=== PATIENT | female | born 1990 | race American Indian/Alaskan Native ===

== ENCOUNTER → 2016-11-30 | Outpatient (CLI) | payer BC, OTHER ==
--- NOTE | 2016-11-30 15:37 | US ---
EXAMINATION: Right breast ultrasound HISTORY: Increasing lump COMPARISON: None TECHNIQUE: Grayscale and color Doppler images obtained of the right breast. FINDINGS: At the 3:00 position of the right breast there is a 1.9 x 2.1 cm hypoechoic fairly homogen eous and mildly vascular mass. The margins appear rather well circumscribed however there are karoline ral undulations. There is no significant posterior acoustic shadowing. IMPRESSION: BI-RADS 4: Suspicious finding. There is a hypoechoic mass within the region of concern w hich most likely represents a fibroadenoma, however due to the enlarging size and several undulation s ultrasound-guided biopsy may be beneficial to confirm diagnosis.
== END ==
LOC: MW.US 10:56
PROVIDERS: ATTEND Physician Assistant
DX: N63 Unspecified lump in breast (principal)
CPT/HCPCS: 76641-RT; 76641-RT-26

== ENCOUNTER → 2016-12-15 | Outpatient (CLI) | payer BC, OTHER ==
--- NOTE | 2016-12-15 13:59 | US ---
EXAMINATION: Right breast ultrasound HISTORY: Lump COMPARISON: 11/16/2016 TECHNIQUE: The procedure, risks, and benefits were discussed with the patient. Informed consent was obtained. The overlying area was sterilely prepped and draped. 1% lidocaine was administered for lo rimma anesthesia. Using ultrasound guidance a total of 3 16-gauge core biopsies were obtained. A clip was placed following the procedure. There were no immediate complications. Patient tolerated the pro cedure well. IMPRESSION: Successful ultrasound-guided breast biopsy of a right 3:00 breast mass.
== END ==
LOC: MW.US 10:02
PROVIDERS: ATTEND Physician Assistant
DX: N63 Unspecified lump in breast (principal)
CPT/HCPCS: 19083-RT; 88305

== ENCOUNTER 2017-02-14 08:17 | Day surgery (SDC) | payer BC, OTHER ==
[~2017-02-14 08:17] MED LIST: Bupivacaine 0.25%/EPINEPHrine 1:200,000 10 ML SDV ONE
--- NOTE | 2017-02-14 08:46 | PCM.PREANE ---
Preanesthetic Assessment - Anesthesia/Transfusion/Family Hx Anesthesia History: Prior Anesthesia Without Reaction Family History of Anesthesia Reaction: No Transfusion History: No Prior Transfusion(s) Intubation History: Unknown - Review of Systems General: No Symptoms Pulmonary: No Symptoms Cardiovascular: No Symptoms 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: No symptoms Neurological: No Symptoms Other: Reports: None - Physical Assessment Height: 1.57 m Weight: 67.132 kg ASA Class: 2 Mental Status: Alert & Oriented x3 Airway Class: Mallampati = 2 Dentition: Reports: Normal Dentition Thyro-Mental Finger Breadths: 3 Mouth Opening Finger Breadths: 3 ROM/Head Extension: Full Lungs: Clear to auscultation, Normal respiratory effort Cardiovascular: Regular Rate, Regular Rhythm - Lab Values: Laboratory Last Values Urine HCG, Qual NEGATIVE (NEGATIVE) 02/14/17 08:20 - Allergies Allergies/Adverse Reactions: Allergies Allergy/AdvReac Type Severity Reaction Status Date / Time No Known Allergies Allergy Verified 09/04/16 14:05 - Blood Blood Available: No - Anesthesia Plan Pre-Op Medication Ordered: None - Acknowledgements Anesthesia Type Planned: MAC Pt an Appropriate Candidate for the Planned Anesthesia: Yes Alternatives and Risks of Anesthesia Discussed w Pt/Guardian: Yes Pt/Guardian Understands and Agrees with Anesthesia Plan: Yes PreAnesthesia Questionnaire - Past Health History Medical/Surgical History: Denies Medical/Surgical History HEENT History: Reports: None 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 History: Reports: 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: 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 History: Reports: Fracture Endocrine/Metabolic History: Reports: None - Infectious Disease History Infectious Disease History: Reports: Chicken Pox - Past Surgical History Head Surgeries/Procedures: Reports: None HEENT Surgical History: Reports: Oral Surgery Other HEENT Surgeries/Procedures: wisdom teeth extraction GI Surgical History: Reports: Cholecystectomy 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 Surgical History: Other 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 Surgeries/Procedures:: ORIF left arm fx with plate and screws - SUBSTANCE USE Smoking Status *Q: Current Every Day Smoker (1/2 ppd) Tobacco Use Within Last Twelve Months: Cigarettes Second Hand Smoke Exposure: No Days Per Week of Alcohol Use: 0 Recreational Drug Use History: No - HOME MEDS Home Medications: Home Meds Phentermine HCl 1 tab PO DAILY 02/08/17 [History] - CURRENT (IN HOUSE) MEDS Current Meds: Current Medications Hydrocodone Bitart/Acetaminophen (Orange 325-5 Mg) 1 tab PO Q4H PRN PRN Reason: Pain Bupivacaine HCl/Epinephrine Bitart (Marcaine 0.25%/Epinephrine 1:200,000) 20 ml INJECT ONETIME ONE Stop: 02/14/17 09:01 Lactated Ringer's (Ringers, Lactated) 1,000 mls @ 125 mls/hr IV ASDIRECTED KACI Cefazolin Sodium/Dextrose 2 gm (/ Premix) 50 mls @ 100 mls/hr IV ONETIME ONE Stop: 02/14/17 09:29 Discontinued Medications Bupivacaine HCl/Epinephrine Bitart (Marcaine 0.25%/Epinephrine 1:200,000) Confirm Administered Dose 20 ml .ROUTE .STK-MED ONE Stop: 02/14/17 07:32
[2017-02-14] MEDS ORDERED: ceFAZolin 2 GM in Premix Bag 1 BAG IV ONE (09:00)
[2017-02-14] MEDS ORDERED: Acetaminophen/HYDROcodone 325-5 MG Tab PO PRN (09:00)
[2017-02-14] MEDS ORDERED: Bupivacaine 0.25%/EPINEPHrine 1:200,000 10 ML SDV INJECT ONE (09:00)
[2017-02-14] MEDS ORDERED: Lactated Ringers 1,000 ML IV SCH (09:00)
[2017-02-14] MEDS ORDERED: Midazolam 1 MG/ML 2 ML SDV ONE (09:28)
[2017-02-14] MEDS ORDERED: Lidocaine 2% 5 ML SDV ONE (09:28)
[2017-02-14] MEDS ORDERED: fentaNYL 250 MCG/5 ML SDV ONE (09:28)
[2017-02-14] MEDS ORDERED: Propofol 200 MG/20 ML SDV ONE ×2 (09:28→09:29)
[2017-02-14] MEDS ORDERED: fentaNYL 100 MCG/2 ML SDV IVPUSH PRN (10:35)
[2017-02-14 12:38] VITALS: BP 115/77
--- NOTE | 2017-02-14 15:30 | PCM.OPNOTE ---
- General Post-Op/Procedure Note Date of Surgery/Procedure: 02/14/17 Operative Procedure(s): excision fo right breast fibroadenoma Pre Op Diagnosis: right breast fibroadenoma Post-Op Diagnosis: Same Anesthesia Technique: General LMA, Local Primary Surgeon: Queta Marinelli Printing Supervisor: Kizzy Cheema Complications: None Condition: Good Free Text/Narrative:: Intake & Output 02/13/17 02/14/17 02/14/17 23:59 07:59 15:59 Intake Total 1000 Balance 1000
--- NOTE | 2017-02-15 16:19 | OR ---
SURGEON: YARI GOMEZ MD DATE OF PROCEDURE: 02/14/2017 PREOPERATIVE DIAGNOSIS: Right breast fibroadenoma. POSTOPERATIVE DIAGNOSIS: Right breast fibroadenoma. PROCEDURE: Excision of right breast fibroadenoma 3 cm. PRACTICE PHYSICIAN: MARTY Benavidez. ANESTHESIA: General LMA with local. INDICATIONS: Ms. Mittal is a 26-year-old female with a right breast lesion. She has had ultrasounds and this is very indicative of a fibroadenoma. However, it continues to cause her pain and grow in size. Risks and benefits of excision were discussed and she was in agreement to proceed. Risks were including, but not limited to, bleeding, infection, damage to underlying or overlying structures, possible need for future interventions and possible scarring. PROCEDURE IN DETAIL: After informed consent was obtained and placed on the chart, the patient was brought to the operating theater and laid in supine position. After adequate general anesthetic was obtained, the area was prepped and draped and a time-out was completed to confirm side and site. Local anesthesia was then infiltrated into the area and dissection was carried around the periareolar medial area of the right breast and dissection was carried down through the skin and subcutaneous tissues until the breast tissue was reached. The fibroadenoma was easily localized and circumferentially dissected and removed and sent for pathology. Once adequately removed, the area was irrigated and the skin was closed using a 4-0 nylon stitch in a running subcuticular fashion. The patient tolerated this well. All counts and needles were correct at the end of the case. FOLLOWUP INSTRUCTIONS: The patient will see us in clinic in 10 to 14 days or sooner if any problems, questions, or concerns. She was given a prescription for pain control. SHAYNE / CAYLA /[id number]
== END 2017-02-14 12:00 | disposition home or self-care (01) ==
LOC: MW.SDS 08:17
PROVIDERS: ATTEND Plastic Surgery
PROC: 0HBT0ZZ Excision of Right Breast, Open Approach (ICD-10-PCS; principal; 2017-02-14)
DX: D24.1 Benign neoplasm of right breast (principal); F17.210 Nicotine dependence, cigarettes, uncomplicated; Z79.899 Other long term (current) drug therapy; Z98.890 Other specified postprocedural states; Z90.49 Acquired absence of other specified parts of digestive tract
CPT/HCPCS: 19120; 81025; J0690; J2250; J3010; J7120; 00400; 88307; J2704

== ENCOUNTER 2018-08-11 11:01 | Day surgery (SDC) | payer BC, OTHER ==
[2018-08-11] MEDS ORDERED: Ketorolac 30 MG/ML SDV IVPUSH ONE (11:15)
[2018-08-11] MEDS ORDERED: Sodium Chloride 0.9% 1,000 ML IV ONE (11:15)
--- NOTE | 2018-08-11 11:19 | EDM.PDOC ---
ED HPI GENERAL MEDICAL PROBLEM - General Chief Complaint: Abdominal Pain Stated Complaint: PAIN IN LOWER RT SIDE Time Seen by Provider: 08/11/18 11:09 Source of Information: Reports: Patient History Limitations: Reports: No Limitations - History of Present Illness INITIAL COMMENTS - FREE TEXT/NARRATIVE: HISTORY AND PHYSICAL: History of present illness: Patient is a 27-year-old female who presents to the emergency room with complaints of right lower quadrant pain. She states over the past 3 weeks she has had this right lower quadrant pain that occurs only at night. She reports that eventually she would fall asleep and wake up and the pain would be gone. She states last night she had the right lower quadrant pain as normal but when she woke up today the pain continued. Pain is worse with movement, pressure or palpation of the right lower quadrant. She denies any fever, chills, chest pain , shortness of breath or cough. Denies any nausea, vomiting, diarrhea, constipation or dysuria. She has been able to eat and drink appropriately. Last menstrual period 07/30/18 Review of systems: As per history of present illness and below otherwise all systems reviewed and negative. Past medical history: As per history of present illness and as reviewed below otherwise noncontributory. Surgical history: As per history of present illness and as reviewed below otherwise noncontributory. Social history: See social history for further information Family history: As per history of present illness and as reviewed below otherwise noncontributory. Physical exam: General: Well-developed and well-nourished 89 she'll female. Alert and oriented. Nontoxic appearing and in no acute distress. HEENT: Atraumatic, normocephalic, pupils equal and reactive bilaterally, negative for conjunctival pallor or scleral icterus, mucous membranes moist, throat clear, neck supple, nontender, trachea midline. No drooling or trismus noted. No meningeal signs Lungs: Clear to auscultation, breath sounds equal bilaterally, chest nontender. Heart: S1S2, regular rate and rhythm without overt murmur Abdomen: Soft, nondistended, right lower quadrant tenderness- mild rebound tenderness. Negative for masses or hepatosplenomegaly. Negative for costovertebral tenderness. Pelvis: Stable nontender. Genitourinary: Deferred. Rectal: Deferred. Skin: Intact, warm, dry. No lesions or rashes noted. Extremities: Atraumatic, negative for cords or calf pain. Neurovascular unremarkable. Neuro: Awake, alert, oriented. Cranial nerves II through XII unremarkable. Cerebellum unremarkable. Motor and sensory unremarkable throughout. Exam nonfocal. Notes: Patient did have a right breast fibroadenoma removed on 07/24/18. Previous history of cholecystectomy. Consulting radiology did call with the results on the CT scan. Appendix is enlarged at 7 mm with mild fat stranding which represents an early appendicitis. Dr Perkins was called and consulted on this patient. He will come in to see the patient. Patient was made aware of the CT findings and instructed to be nothing by mouth. She declines the need for any additional pain medication at this time. Vital signs are stable. 1310: Dr Perkins here to see patient. Diagnostics: CBC, CMP, UA, urine , CT abdomen and pelvis Therapeutics: IV fluid, Toradol Prescription: N/A Impression: Early Appendicitis Plan: Under the care of Dr Perkins to OR Definitive disposition and diagnosis as appropriate pending reevaluation and review of above. RLQ Pain Score (Numeric/FACES): 6 - Related Data Allergies Allergy/AdvReac Type Severity Reaction Status Date / Time No Known Allergies Allergy Verified 08/11/18 11:18 Home Meds: Home Meds . 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: 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 History: Reports: Fracture Other Neuro History: migraines in the past, Endocrine/Metabolic History: Reports: None Oncologic (Cancer) History: Reports: None - Infectious Disease History Infectious Disease History: Reports: Chicken Pox - Past Surgical History Head Surgeries/Procedures: Reports: None HEENT Surgical History: Reports: Oral Surgery Other HEENT Surgeries/Procedures: wisdom teeth extraction GI Surgical History: Reports: Cholecystectomy Female Surgical History: Reports: Breast Biopsy Other 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 Surgeries/Procedures:: ORIF left arm fx with plate and screws Oncologic Surgical History: Reports: Biopsy of Breast Social & Family History - Family History Family Medical History: Noncontributory - Caffeine Use Caffeine Use: Reports: Coffee, Energy Drinks, Soda, Tea Caffeine Use Comment: 1-2 cups/day ED ROS GENERAL - Review of Systems Review Of Systems: ROS reveals no pertinent complaints other than HPI. ED EXAM, GI/ABD - Physical Exam Exam: See Below (See dictation) Course - Vital Signs Last Recorded V/S: Last Vital Signs Temp 97.1 F 08/11/18 11:17 Pulse 78 08/11/18 12:47 Resp 18 08/11/18 12:47 BP 107/69 08/11/18 12:47 Pulse Ox 98 08/11/18 12:47 - Orders/Labs/Meds Orders: Active Orders 24 hr Category Date Time Status Abdomen Pelvis w Cont [CT] Stat Exams 08/11/18 11:15 Ordered CULTURE URINE [RM] Stat Lab 08/11/18 11:52 Ordered Lactated Ringers [Ringers, Lactated] 1,000 ml Med 08/11/18 13:30 Active IV ASDIRECTED cefOXitin [Mefoxin] 2 gm Med 08/11/18 13:21 Active Sodium Chloride 0.9% [Normal Saline] 100 ml IV ONETIME Medication Orders Lactated Ringer's (Ringers, Lactated) 1,000 mls @ 125 mls/hr IV ASDIRECTED KACI Cefoxitin Sodium 2 gm/ Sodium (Chloride) 100 mls @ 200 mls/hr IV ONETIME ONE Stop: 08/11/18 13:47 Labs: Laboratory Tests 08/11/18 08/11/18 08/11/18 Range/Units 11:20 11:20 11:23 WBC 11.00 (4.0-11.0) K/uL RBC 4.82 (4.30-5.90) M/uL Hgb 14.3 (12.0-16.0) g/dL Hct 42.5 (36.0-46.0) % MCV 88.2 (80.0-98.0) fL MCH 29.7 (27.0-32.0) pg MCHC 33.6 (31.0-37.0) g/dL RDW Std Deviation 40.5 (28.0-62.0) fl RDW Coeff of Rossy 13 (11.0-15.0) % Plt Count 263 (150-400) K/uL MPV 9.80 (7.40-12.00) fL Neut % (Auto) 67.9 (48.0-80.0) % Lymph % (Auto) 24.7 (16.0-40.0) % [place] % (Auto) 5.3 (0.0-15.0) % Eos % (Auto) 1.7 (0.0-7.0) % Baso % (Auto) 0.4 (0.0-1.5) % Neut # (Auto) 7.5 H (1.4-5.7) K/uL Lymph # (Auto) 2.7 H (0.6-2.4) K/uL [place] # (Auto) 0.6 (0.0-0.8) K/uL Eos # (Auto) 0.2 (0.0-0.7) K/uL Baso # (Auto) 0.0 (0.0-0.1) K/uL Nucleated RBC % 0.0 /100WBC Nucleated RBCs # 0 K/uL Sodium (136-145) mmol/L Potassium (3.5-5.1) mmol/L Chloride (98-107) mmol/L Carbon Dioxide (21.0-32.0) mmol/L BUN (7.0-18.0) mg/dL Creatinine (0.6-1.0) mg/dL Est Cr Clr Drug Dosing mL/min Estimated GFR (MDRD) ml/min Glucose (74-106) mg/dL Calcium (8.5-10.1) mg/dL Total Bilirubin (0.2-1.0) mg/dL AST (15-37) IU/L ALT (14-63) IU/L Alkaline Phosphatase (46-116) U/L Total Protein (6.4-8.2) g/dL Albumin (3.4-5.0) g/dL Globulin (2.6-4.0) g/dL Albumin/Globulin Ratio (0.9-1.6) Urine Color YELLOW Urine Appearance CLEAR Urine pH 6.5 (5.0-8.0) Ur Specific [place] 1.020 (1.001-1.035) Urine Protein NEGATIVE (NEGATIVE) mg/dL Urine Glucose (UA) NEGATIVE (NEGATIVE) mg/dL Urine Ketones NEGATIVE (NEGATIVE) mg/dL Urine Occult Blood TRACE-INTACT H (NEGATIVE) Urine Nitrite NEGATIVE (NEGATIVE) Urine Bilirubin SMALL H (NEGATIVE) Urine Ictotest POSITIVE Urine Urobilinogen 0.2 (<2.0) EU/dL Ur Leukocyte Esterase NEGATIVE (NEGATIVE) Urine RBC 0-2 (0-2/HPF) Urine WBC 0-2 (0-5/HPF) Ur Epithelial Cells MODERATE (NONE-FEW) Urine Bacteria 1+ H (NEGATIVE) Urine Mucus MODERATE (NONE-MOD) Urine HCG, Qual NEGATIVE (NEGATIVE) 08/11/18 Range/Units 11:23 WBC (4.0-11.0) K/uL RBC (4.30-5.90) M/uL Hgb (12.0-16.0) g/dL Hct (36.0-46.0) % MCV (80.0-98.0) fL MCH (27.0-32.0) pg MCHC (31.0-37.0) g/dL RDW Std Deviation (28.0-62.0) fl RDW Coeff of Rossy (11.0-15.0) % Plt Count (150-400) K/uL MPV (7.40-12.00) fL Neut % (Auto) (48.0-80.0) % Lymph % (Auto) (16.0-40.0) % [place] % (Auto) (0.0-15.0) % Eos % (Auto) (0.0-7.0) % Baso % (Auto) (0.0-1.5) % Neut # (Auto) (1.4-5.7) K/uL Lymph # (Auto) (0.6-2.4) K/uL [place] # (Auto) (0.0-0.8) K/uL Eos # (Auto) (0.0-0.7) K/uL Baso # (Auto) (0.0-0.1) K/uL Nucleated RBC % /100WBC Nucleated RBCs # K/uL Sodium 138 (136-145) mmol/L Potassium 3.9 (3.5-5.1) mmol/L Chloride 102 (98-107) mmol/L Carbon Dioxide 26.1 (21.0-32.0) mmol/L BUN 5 L (7.0-18.0) mg/dL Creatinine 0.7 (0.6-1.0) mg/dL Est Cr Clr Drug Dosing 96.32 mL/min Estimated GFR (MDRD) > 60.0 ml/min Glucose 90 (74-106) mg/dL Calcium 8.8 (8.5-10.1) mg/dL Total Bilirubin 0.5 (0.2-1.0) mg/dL AST 17 (15-37) IU/L ALT 30 (14-63) IU/L Alkaline Phosphatase 116 (46-116) U/L Total Protein 7.4 (6.4-8.2) g/dL Albumin 3.9 (3.4-5.0) g/dL Globulin 3.5 (2.6-4.0) g/dL Albumin/Globulin Ratio 1.1 (0.9-1.6) Urine Color Urine Appearance Urine pH (5.0-8.0) Ur Specific [place] (1.001-1.035) Urine Protein (NEGATIVE) mg/dL Urine Glucose (UA) (NEGATIVE) mg/dL Urine Ketones (NEGATIVE) mg/dL Urine Occult Blood (NEGATIVE) Urine Nitrite (NEGATIVE) Urine Bilirubin (NEGATIVE) Urine Ictotest Urine Urobilinogen (<2.0) EU/dL Ur Leukocyte Esterase (NEGATIVE) Urine RBC (0-2/HPF) Urine WBC (0-5/HPF) Ur Epithelial Cells (NONE-FEW) Urine Bacteria (NEGATIVE) Urine Mucus (NONE-MOD) Urine HCG, Qual (NEGATIVE) Meds: Medications Generic Name Dose Route Start Last Admin Trade Name Freq PRN Reason Stop Dose Admin Lactated Ringer's 1,000 mls @ 125 mls/hr 08/11/18 13:30 Ringers, Lactated IV ASDIRECTED KACI Cefoxitin Sodium 2 gm/ Sodium 100 mls @ 200 mls/hr 08/11/18 13:21 Chloride IV 08/11/18 13:47 ONETIME ONE Discontinued Medications Generic Name Dose Route Start Last Admin Trade Name Freq PRN Reason Stop Dose Admin Sodium Chloride 1,000 mls @ 999 mls/hr 08/11/18 11:15 08/11/18 11:26 Normal Saline IV 08/11/18 12:15 999 mls/hr STAT ONE Administration Cefoxitin Sodium 2 gm/ Premix 50 mls @ 100 mls/hr 08/11/18 13:18 IV 08/11/18 13:47 ONETIME ONE Ketorolac Tromethamine 30 mg 08/11/18 11:15 08/11/18 11:26 Toradol IVPUSH 08/11/18 11:16 30 mg ONETIME ONE Administration Departure - Departure Time of Disposition: 13:22 Disposition: Still A Patient 30 Clinical Impression: Appendicitis Qualifiers: Appendicitis type: acute appendicitis Acute appendicitis type: with localized peritonitis Appendicitis gangrene presence: without gangrene Appendicitis perforation presence: without perforation Appendicitis abscess presence: without abscess Qualified Code(s): K35.30 - Acute appendicitis with localized peritonitis, without perforation or gangrene - Discharge Information Referrals: Mauri Dunbar [Primary Care Provider] - Forms: ED Department Discharge - My Orders Last 24 Hours: My Active Orders 08/11/18 11:15 Abdomen Pelvis w Cont [CT] Stat 08/11/18 11:52 CULTURE URINE [RM] Stat - Assessment/Plan Last 24 Hours: My Active Orders 08/11/18 11:15 Abdomen Pelvis w Cont [CT] Stat 08/11/18 11:52 CULTURE URINE [RM] Stat
[2018-08-11 11:52] LABS: CHLORIDE,CL 102 mmol/L (98-107); SODIUM,NA 138 mmol/L (136-145)
[2018-08-11] MEDS ORDERED: cefOXitin 2 GM in Premix Bag 1 BAG IV ONE (13:18)
[2018-08-11] MEDS ORDERED: cefOXitin 2 GM in Sodium Chloride 0.9% 100 ML IV ONE (13:21)
[2018-08-11] MEDS: Lactated Ringers 1,000 ML IV SCH ×2 (13:26→16:17)
--- NOTE | 2018-08-11 13:37 | PCM.CONS ---
H&P History of Present Illness - General Date of Service: 08/11/18 Admit Problem/Dx: Right lower quadrant pain Source of Information: Patient History Limitations: Reports: No Limitations - History of Present Illness Initial Comments - Free Text/Narative: Patient is a 27-year-old female who presented the emergency room today complaining of right lower quadrant abdominal pain. The pain actually started last night and has been consistent in the right lower quadrant. It is associated with pain on ambulation. She denies any nausea, vomiting, fever or chills. She says she is hungry. No prior history of ovarian cysts or other lower abdominal discomfort. She did have a laparoscopic cholecystectomy in the past. Symptom Onset Date: 08/10/18 Location: Reports: Abdomen Quality: Reports: Ache, Pressure Improves with: Reports: Rest Worsens with: Reports: Movement Associated Symptoms: Denies: Confusion, Chest Pain, Fever/Chills, Loss of Appetite, Nausea/Vomiting RLQ Pain Score (Numeric/FACES): 6 - Related Data Allergies/Adverse Reactions: Allergies Allergy/AdvReac Type Severity Reaction Status Date / Time No Known Allergies Allergy Verified 08/11/18 11:18 Home Medications: Home Meds . [No Known Home Meds] 08/11/18 [History] Past Medical History - Past Health History Medical/Surgical History: Denies Medical/Surgical History HEENT History: Reports: Other (See Below) Other HEENT History: wears glasses 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 History: Reports: None Genitourinary History: Reports: None [employer] History: Reports: 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 History: Reports: Fracture Other Neuro History: migraines in the past, Endocrine/Metabolic History: Reports: None Oncologic (Cancer) History: Reports: None - Infectious Disease History Infectious Disease History: Reports: Chicken Pox - Past Surgical History Head Surgeries/Procedures: Reports: None HEENT Surgical History: Reports: Oral Surgery Other HEENT Surgeries/Procedures: wisdom teeth extraction GI Surgical History: Reports: Cholecystectomy Female Surgical History: Reports: Breast Biopsy Other 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 Surgeries/Procedures:: ORIF left arm fx with plate and screws Oncologic Surgical History: Reports: Biopsy of Breast Social & Family History - Family History Family Medical History: Noncontributory - Tobacco Use Smoking Status *Q: Current Every Day Smoker Years of Tobacco use: 10 Packs/Tins Daily: 1 - Caffeine Use Caffeine Use: Reports: Coffee, Energy Drinks, Soda, Tea Caffeine Use Comment: 1-2 cups/day - Recreational Drug Use Recreational Drug Use: No H&P Review of Systems - Review of Systems: Review Of Systems: See Below General: Denies: Fever, Chills, Malaise, Weakness, Fatigue HEENT: Reports: No Symptoms Pulmonary: Denies: Shortness of Breath, Wheezing Cardiovascular: Denies: Chest Pain, Palpitations 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: Reports: Abdominal Pain, Flatus. Denies: Anorexia, Black Stool, Bloody Stool, Constipation, Diarrhea, Decreased Appetite, Distension, Nausea, Vomiting Genitourinary: Reports: No Symptoms 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: Reports: No Symptoms Skin: Denies: Cyanosis, Jaundice Psychiatric: Denies: Confusion, Depression, Mood Lability, Anxiety Neurological: Denies: Confusion, Dizziness, Headache, Numbness Hematologic/Lymphatic: Reports: No Symptoms Immunologic: Reports: No Symptoms Exam - Exam Exam: See Below - Vital Signs Vital Signs: Last Vital Signs Temp 97.1 F 08/11/18 11:17 Pulse 78 08/11/18 12:47 Resp 18 08/11/18 12:47 BP 107/69 08/11/18 12:47 Pulse Ox 98 08/11/18 12:47 Weight: 160 lb - Exam Quality Assessment: No: Supplemental Oxygen General: Alert, Oriented, Cooperative, Mild Distress HEENT: Conjunctiva Clear, EACs Clear, Pupils Equal, Pupils Reactive. No: Scleral Icterus Neck: Supple, Trachea Midline Lungs: Clear to Auscultation, Normal Respiratory Effort Cardiovascular: Regular Rate, Regular Rhythm, Normal S1, Normal S2. No: Tachycardia GI/Abdominal Exam: Normal Bowel Sounds, Soft, No Distention, No Mass, Rebound, Tender (rlq). No: Guarding, Rigid (Female) Exam: Deferred Rectal (Female) Exam: Deferred Back Exam: Normal Inspection Extremities: Normal Inspection Peripheral Pulses: 4+: Posterior Tibial (L), Posterior Tibial (R), Dorsalis Pedis (L), Dorsalis Pedis (R) Skin: Warm, Dry, Intact Neurological: Cranial Nerves Intact Neuro Extensive - Mental Status: Alert, Oriented x3, Normal Mood/Affect Psychiatric: Alert, Normal Affect, Normal Mood - Patient Data Lab Results Last 24 hrs: Laboratory Results - last 24 hr 01/13/19 01/13/19 01/13/19 Range/Units 11:20 11:20 11:23 WBC 11.00 (4.0-11.0) K/uL RBC 4.82 (4.30-5.90) M/uL Hgb 14.3 (12.0-16.0) g/dL Hct 42.5 (36.0-46.0) % MCV 88.2 (80.0-98.0) fL MCH 29.7 (27.0-32.0) pg MCHC 33.6 (31.0-37.0) g/dL RDW Std Deviation 40.5 (28.0-62.0) fl RDW Coeff of Rossy 13 (11.0-15.0) % Plt Count 263 (150-400) K/uL MPV 9.80 (7.40-12.00) fL Neut % (Auto) 67.9 (48.0-80.0) % Lymph % (Auto) 24.7 (16.0-40.0) % [place] % (Auto) 5.3 (0.0-15.0) % Eos % (Auto) 1.7 (0.0-7.0) % Baso % (Auto) 0.4 (0.0-1.5) % Neut # (Auto) 7.5 H (1.4-5.7) K/uL Lymph # (Auto) 2.7 H (0.6-2.4) K/uL [place] # (Auto) 0.6 (0.0-0.8) K/uL Eos # (Auto) 0.2 (0.0-0.7) K/uL Baso # (Auto) 0.0 (0.0-0.1) K/uL Nucleated RBC % 0.0 /100WBC Nucleated RBCs # 0 K/uL Sodium (136-145) mmol/L Potassium (3.5-5.1) mmol/L Chloride (98-107) mmol/L Carbon Dioxide (21.0-32.0) mmol/L BUN (7.0-18.0) mg/dL Creatinine (0.6-1.0) mg/dL Est Cr Clr Drug Dosing mL/min Estimated GFR (MDRD) ml/min Glucose (74-106) mg/dL Calcium (8.5-10.1) mg/dL Total Bilirubin (0.2-1.0) mg/dL AST (15-37) IU/L ALT (14-63) IU/L Alkaline Phosphatase (46-116) U/L Total Protein (6.4-8.2) g/dL Albumin (3.4-5.0) g/dL Globulin (2.6-4.0) g/dL Albumin/Globulin Ratio (0.9-1.6) Urine Color YELLOW Urine Appearance CLEAR Urine pH 6.5 (5.0-8.0) Ur Specific [place] 1.020 (1.001-1.035) Urine Protein NEGATIVE (NEGATIVE) mg/dL Urine Glucose (UA) NEGATIVE (NEGATIVE) mg/dL Urine Ketones NEGATIVE (NEGATIVE) mg/dL Urine Occult Blood TRACE-INTACT H (NEGATIVE) Urine Nitrite NEGATIVE (NEGATIVE) Urine Bilirubin SMALL H (NEGATIVE) Urine Ictotest POSITIVE Urine Urobilinogen 0.2 (<2.0) EU/dL Ur Leukocyte Esterase NEGATIVE (NEGATIVE) Urine RBC 0-2 (0-2/HPF) Urine WBC 0-2 (0-5/HPF) Ur Epithelial Cells MODERATE (NONE-FEW) Urine Bacteria 1+ H (NEGATIVE) Urine Mucus MODERATE (NONE-MOD) Urine HCG, Qual NEGATIVE (NEGATIVE) 08/11/18 Range/Units 11:23 WBC (4.0-11.0) K/uL RBC (4.30-5.90) M/uL Hgb (12.0-16.0) g/dL Hct (36.0-46.0) % MCV (80.0-98.0) fL MCH (27.0-32.0) pg MCHC (31.0-37.0) g/dL RDW Std Deviation (28.0-62.0) fl RDW Coeff of Rossy (11.0-15.0) % Plt Count (150-400) K/uL MPV (7.40-12.00) fL Neut % (Auto) (48.0-80.0) % Lymph % (Auto) (16.0-40.0) % [place] % (Auto) (0.0-15.0) % Eos % (Auto) (0.0-7.0) % Baso % (Auto) (0.0-1.5) % Neut # (Auto) (1.4-5.7) K/uL Lymph # (Auto) (0.6-2.4) K/uL [place] # (Auto) (0.0-0.8) K/uL Eos # (Auto) (0.0-0.7) K/uL Baso # (Auto) (0.0-0.1) K/uL Nucleated RBC % /100WBC Nucleated RBCs # K/uL Sodium 138 (136-145) mmol/L Potassium 3.9 (3.5-5.1) mmol/L Chloride 102 (98-107) mmol/L Carbon Dioxide 26.1 (21.0-32.0) mmol/L BUN 5 L (7.0-18.0) mg/dL Creatinine 0.7 (0.6-1.0) mg/dL Est Cr Clr Drug Dosing 96.32 mL/min Estimated GFR (MDRD) > 60.0 ml/min Glucose 90 (74-106) mg/dL Calcium 8.8 (8.5-10.1) mg/dL Total Bilirubin 0.5 (0.2-1.0) mg/dL AST 17 (15-37) IU/L ALT 30 (14-63) IU/L Alkaline Phosphatase 116 (46-116) U/L Total Protein 7.4 (6.4-8.2) g/dL Albumin 3.9 (3.4-5.0) g/dL Globulin 3.5 (2.6-4.0) g/dL Albumin/Globulin Ratio 1.1 (0.9-1.6) Urine Color Urine Appearance Urine pH (5.0-8.0) Ur Specific [place] (1.001-1.035) Urine Protein (NEGATIVE) mg/dL Urine Glucose (UA) (NEGATIVE) mg/dL Urine Ketones (NEGATIVE) mg/dL Urine Occult Blood (NEGATIVE) Urine Nitrite (NEGATIVE) Urine Bilirubin (NEGATIVE) Urine Ictotest Urine Urobilinogen (<2.0) EU/dL Ur Leukocyte Esterase (NEGATIVE) Urine RBC (0-2/HPF) Urine WBC (0-5/HPF) Ur Epithelial Cells (NONE-FEW) Urine Bacteria (NEGATIVE) Urine Mucus (NONE-MOD) Urine HCG, Qual (NEGATIVE) Result Diagrams: 08/11/18 11:23 08/11/18 11:23 Imaging Impressions Last 24 hrs: CAT scan report suggests a 7 mm appendix with periappendiceal fat stranding consistent with early appendicitis. Consult PN Assessment/Plan Procedures: Procedures BX BREAST 1ST LESION US IMAG (12/15/16) COMPLETE CBC AUTOMATED (07/07/14) COMPLETE CBC W/AUTO DIFF WBC (09/04/16) COMPREHEN METABOLIC PANEL (09/04/16) ECHO EXAM OF ABDOMEN (08/14/16) GLUCOSE TEST (07/07/14) HPV LOW-RISK TYPES (10/19/14) LAPAROSCOPIC CHOLECYSTECTOMY (09/12/16) REMOVAL OF BREAST LESION (07/24/18) ROUTINE VENIPUNCTURE (09/04/16) TISSUE EXAM BY PATHOLOGIST (12/15/16) ULTRASOUND BREAST COMPLETE (11/30/16) URINE BACTERIA CULTURE (03/12/14) URINE TEST (07/24/18) (1) Appendicitis SNOMED Code(s): 98284609 Code(s): K37 - UNSPECIFIED APPENDICITIS Priority: High Current Visit: Yes Qualifiers: Appendicitis type: acute appendicitis Problem List Initiated/Reviewed/Updated: Yes My Orders Last 24 Hours: My Active Orders 08/11/18 13:21 cefOXitin [Mefoxin] 2 gm Sodium Chloride 0.9% [Normal Saline] 100 ml IV ONETIME 08/11/18 13:30 Lactated Ringers [Ringers, Lactated] 1,000 ml IV ASDIRECTED 08/11/18 13:31 Insert Urinary Catheter [OM.PC] Timed Oxygen Therapy [RC] ASDIRECTED RT Incentive Spirometry [RC] Q1HWA Skin Preparation [RC] .PREOP Urinary Catheter Assessment [RC] ASDIRECTED Urinary Catheter Assessment [RC] ASDIRECTED Urinary Catheter Assessment [RC] ASDIRECTED Vital Signs [RC] PER UNIT ROUTINE Antiembolic Hose [OM.PC] Routine Resuscitation Status Routine 08/11/18 Dinner Nothing Per Oral Diet [DIET] Plan: Laparoscopic appendectomy, possible open appendectomy. Both operative procedures, along with the risks, including, but not limited to, bleeding, infection, pneumonia, deep venous thrombosis, pulmonary emboli, myocardial infarction, and adjacent organ injury have been reviewed with the patient who voices understanding, offers no questions and agrees to proceed.
[2018-08-11] MEDS ORDERED: Ketorolac 30 MG/ML SDV ONE (13:48)
[2018-08-11] MEDS ORDERED: Midazolam 1 MG/ML 2 ML SDV ONE (13:48)
[2018-08-11] MEDS ORDERED: Ondansetron 4 MG/2 ML SDV ONE (13:48)
[2018-08-11] MEDS ORDERED: Propofol 200 MG/20 ML SDV ONE (13:48)
[2018-08-11] MEDS ORDERED: fentaNYL 250 MCG/5 ML SDV ONE (13:50)
[2018-08-11] MEDS ORDERED: ceFAZolin 1 GM Vial ONE (13:53)
[2018-08-11] MEDS ORDERED: Bupivacaine 0.5% 10 ML SDV ONE (13:53)
--- NOTE | 2018-08-11 14:04 | PCM.PREANE ---
Preanesthetic Assessment - Anesthesia/Transfusion/Family Hx Anesthesia History: Prior Anesthesia Without Reaction Family History of Anesthesia Reaction: No Transfusion History: No Prior Transfusion(s) Intubation History: Unknown - Review of Systems General: No Symptoms Pulmonary: No Symptoms Cardiovascular: No Symptoms, Other (smoker) 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: No Symptoms Neurological: No Symptoms - Physical Assessment NPO Status Date: 08/10/18 O2 Sat by Pulse Oximetry: 98 Respiratory Rate: 18 Vital Signs: Last Vital Signs Temp 36.2 C 08/11/18 11:17 Pulse 78 08/11/18 12:47 Resp 18 08/11/18 12:47 BP 107/69 08/11/18 12:47 Pulse Ox 98 08/11/18 12:47 Height: 1.57 m Weight: 72.575 kg ASA Class: 1E Mental Status: Alert & Oriented x3 Dentition: Reports: Normal Dentition Thyro-Mental Finger Breadths: 3 Mouth Opening Finger Breadths: 3 ROM/Head Extension: Full Lungs: Clear to Auscultation Cardiovascular: Regular Rate (risks and benifits of general anesthesia discussed extensively with patient and she wishes to proceed.) - Lab Values: Laboratory Last Values WBC 11.00 K/uL (4.0-11.0) 08/11/18 11:23 RBC 4.82 M/uL (4.30-5.90) 08/11/18 11:23 Hgb 14.3 g/dL (12.0-16.0) 08/11/18 11:23 Hct 42.5 % (36.0-46.0) 08/11/18 11:23 MCV 88.2 fL (80.0-98.0) 08/11/18 11:23 MCH 29.7 pg (27.0-32.0) 08/11/18 11:23 MCHC 33.6 g/dL (31.0-37.0) 08/11/18 11:23 RDW Std Deviation 40.5 fl (28.0-62.0) 08/11/18 11:23 RDW Coeff of Rossy 13 % (11.0-15.0) 08/11/18 11:23 Plt Count 263 K/uL (150-400) 08/11/18 11:23 MPV 9.80 fL (7.40-12.00) 08/11/18 11:23 Neut % (Auto) 67.9 % (48.0-80.0) 08/11/18 11:23 Lymph % (Auto) 24.7 % (16.0-40.0) 08/11/18 11:23 [place] % (Auto) 5.3 % (0.0-15.0) 08/11/18 11:23 Eos % (Auto) 1.7 % (0.0-7.0) 08/11/18 11:23 Baso % (Auto) 0.4 % (0.0-1.5) 08/11/18 11:23 Neut # (Auto) 7.5 K/uL (1.4-5.7) H 08/11/18 11:23 Lymph # (Auto) 2.7 K/uL (0.6-2.4) H 08/11/18 11:23 [place] # (Auto) 0.6 K/uL (0.0-0.8) 08/11/18 11:23 Eos # (Auto) 0.2 K/uL (0.0-0.7) 08/11/18 11:23 Baso # (Auto) 0.0 K/uL (0.0-0.1) 08/11/18 11:23 Nucleated RBC % 0.0 /100WBC 08/11/18 11:23 Nucleated RBCs # 0 K/uL 08/11/18 11:23 Sodium 138 mmol/L (136-145) 08/11/18 11:23 Potassium 3.9 mmol/L (3.5-5.1) 08/11/18 11:23 Chloride 102 mmol/L (98-107) 08/11/18 11:23 Carbon Dioxide 26.1 mmol/L (21.0-32.0) 08/11/18 11:23 BUN 5 mg/dL (7.0-18.0) L 08/11/18 11:23 Creatinine 0.7 mg/dL (0.6-1.0) 08/11/18 11:23 Est Cr Clr Drug Dosing 96.32 mL/min 08/11/18 11:23 Estimated GFR (MDRD) > 60.0 ml/min 08/11/18 11:23 Glucose 90 mg/dL (74-106) 08/11/18 11:23 Calcium 8.8 mg/dL (8.5-10.1) 08/11/18 11:23 Total Bilirubin 0.5 mg/dL (0.2-1.0) 08/11/18 11:23 AST 17 IU/L (15-37) 08/11/18 11:23 ALT 30 IU/L (14-63) 08/11/18 11:23 Alkaline Phosphatase 116 U/L (46-116) 08/11/18 11:23 Total Protein 7.4 g/dL (6.4-8.2) 08/11/18 11:23 Albumin 3.9 g/dL (3.4-5.0) 08/11/18 11:23 Globulin 3.5 g/dL (2.6-4.0) 08/11/18 11:23 Albumin/Globulin Ratio 1.1 (0.9-1.6) 08/11/18 11:23 Urine Color YELLOW 08/11/18 11:20 Urine Appearance CLEAR 08/11/18 11:20 Urine pH 6.5 (5.0-8.0) 08/11/18 11:20 Ur Specific [place] 1.020 (1.001-1.035) 08/11/18 11:20 Urine Protein NEGATIVE mg/dL (NEGATIVE) 08/11/18 11:20 Urine Glucose (UA) NEGATIVE mg/dL (NEGATIVE) 08/11/18 11:20 Urine Ketones NEGATIVE mg/dL (NEGATIVE) 08/11/18 11:20 Urine Occult Blood TRACE-INTACT (NEGATIVE) H 08/11/18 11:20 Urine Nitrite NEGATIVE (NEGATIVE) 08/11/18 11:20 Urine Bilirubin SMALL (NEGATIVE) H 08/11/18 11:20 Urine Ictotest POSITIVE 08/11/18 11:20 Urine Urobilinogen 0.2 EU/dL (<2.0) 08/11/18 11:20 Ur Leukocyte Esterase NEGATIVE (NEGATIVE) 08/11/18 11:20 Urine RBC 0-2 (0-2/HPF) 08/11/18 11:20 Urine WBC 0-2 (0-5/HPF) 08/11/18 11:20 Ur Epithelial Cells MODERATE (NONE-FEW) 08/11/18 11:20 Urine Bacteria 1+ (NEGATIVE) H 08/11/18 11:20 Urine Mucus MODERATE (NONE-MOD) 08/11/18 11:20 Urine HCG, Qual NEGATIVE (NEGATIVE) 08/11/18 11:20 - Allergies Allergies/Adverse Reactions: Allergies Allergy/AdvReac Type Severity Reaction Status Date / Time No Known Allergies Allergy Verified 08/11/18 11:18 PreAnesthesia Questionnaire - Past Health History Medical/Surgical History: Denies Medical/Surgical History HEENT History: Reports: Other (See Below) Other HEENT History: wears glasses 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 History: Reports: None Genitourinary History: Reports: None [employer] History: Reports: 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 History: Reports: Fracture Other Neuro History: migraines in the past, Endocrine/Metabolic History: Reports: None Oncologic (Cancer) History: Reports: None - Infectious Disease History Infectious Disease History: Reports: Chicken Pox - Past Surgical History Head Surgeries/Procedures: Reports: None HEENT Surgical History: Reports: Oral Surgery Other HEENT Surgeries/Procedures: wisdom teeth extraction GI Surgical History: Reports: Cholecystectomy Female Surgical History: Reports: Breast Biopsy Other 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 Surgeries/Procedures:: ORIF left arm fx with plate and screws Oncologic Surgical History: Reports: Biopsy of Breast - SUBSTANCE USE Smoking Status *Q: Current Every Day Smoker Tobacco Use Within Last Twelve Months: Cigarettes Recreational Drug Use History: No - HOME MEDS Home Medications: Home Meds . [No Known Home Meds] 08/11/18 [History] - CURRENT (IN HOUSE) MEDS Current Meds: Current Medications Lactated Ringer's (Ringers, Lactated) 1,000 mls @ 125 mls/hr IV ASDIRECTED [facility] Last Admin: 08/11/18 13:26 Dose: 125 mls/hr Discontinued Medications Bupivacaine HCl (Sensorcaine-Mpf 0.5%) Confirm Administered Dose 10 ml .ROUTE .STK-MED ONE Stop: 08/11/18 13:54 Cefazolin Sodium (Ancef) Confirm Administered Dose 1 gm .ROUTE .STK-MED ONE Stop: 08/11/18 13:54 Fentanyl (Sublimaze) Confirm Administered Dose 3,000 mcg .ROUTE .STK-MED ONE Stop: 08/11/18 13:51 Sodium Chloride (Normal Saline) 1,000 mls @ 999 mls/hr IV STAT ONE Stop: 08/11/18 12:15 Last Admin: 08/11/18 11:26 Dose: 999 mls/hr Cefoxitin Sodium 2 gm/ Premix 50 mls @ 100 mls/hr IV ONETIME ONE Stop: 08/11/18 13:47 Last Admin: 08/11/18 13:24 Dose: Not Given Cefoxitin Sodium 2 gm/ Sodium (Chloride) 100 mls @ 200 mls/hr IV ONETIME ONE Stop: 08/11/18 13:47 Last Admin: 08/11/18 13:26 Dose: 200 mls/hr Ketorolac Tromethamine (Toradol) 30 mg IVPUSH ONETIME ONE Stop: 08/11/18 11:16 Last Admin: 08/11/18 11:26 Dose: 30 mg Ketorolac Tromethamine (Toradol) Confirm Administered Dose 60 mg .ROUTE .STK- MED ONE Stop: 08/11/18 13:49 Midazolam HCl (Versed 1 Mg/Ml) Confirm Administered Dose 2 mg .ROUTE .STK-MED ONE Stop: 08/11/18 13:49 Ondansetron HCl (Zofran) Confirm Administered Dose 8 mg .ROUTE .STK-MED ONE Stop: 08/11/18 13:49 Propofol (Diprivan 20 Ml) Confirm Administered Dose 200 mg .ROUTE .STK-MED ONE Stop: 08/11/18 13:49
[2018-08-11] MEDS ORDERED: Albuterol 0.083% 2.5 MG/3 ML Neb Soln NEB PRN (15:30)
[2018-08-11] MEDS ORDERED: Meperidine PF 25 MG/ML Syringe IV PRN (15:30)
[2018-08-11] MEDS ORDERED: Scopolamine 1.5 MG Transdermal Patch TRDERM PRN (15:30)
[2018-08-11] MEDS ORDERED: Metoclopramide 10 MG/2 ML SDV IVPUSH PRN (15:30)
[2018-08-11] MEDS ORDERED: Morphine 4 MG/ML Syringe IVPUSH PRN (15:30)
[2018-08-11] MEDS ORDERED: Meperidine PF 25 MG/ML Syringe IVPUSH PRN (15:30)
[2018-08-11] MEDS ORDERED: Labetalol 20 MG/4 ML Syringe IVPUSH PRN (15:30)
[2018-08-11] MEDS ORDERED: Atropine 1 MG/ML SDV IVPUSH PRN (15:30)
[2018-08-11] MEDS ORDERED: Ondansetron 4 MG/2 ML SDV IVPUSH PRN ×2 (15:30→15:33)
[2018-08-11] MEDS ORDERED: Naloxone 0.4 MG/ML Syringe IVPUSH PRN (15:30)
[2018-08-11] MEDS ORDERED: HYDROmorphone 2 MG/ML SDV IVPUSH PRN (15:30)
[2018-08-11] MEDS ORDERED: hydrALAZINE 20 MG/ML SDV IVPUSH PRN ×2 (15:30)
[2018-08-11] MEDS ORDERED: Acetaminophen 325 MG Tab PO PRN ×2 (15:30→15:33)
[2018-08-11] MEDS ORDERED: Promethazine 25 MG/ML SDV IM PRN (15:30)
--- NOTE | 2018-08-11 15:32 | PCM.OPNOTE ---
- General Post-Op/Procedure Note Date of Surgery/Procedure: 08/11/18 Operative Procedure(s): Laparoscopic appendectomy Pre Op Diagnosis: Acute abdomen Post-Op Diagnosis: Early acute appendicitis Anesthesia Technique: General ET Tube (ASA IE) Primary Surgeon: Deni Perkins Fluid Replacement, Intraop: 900 Output, Urine Amount: 200 EBL in mLs: 10 Condition: Fair Free Text/Narrative:: Intake & Output 08/11/18 08/11/18 08/11/18 03:59 11:59 19:59 Output Total 200 Balance -200 DICTATION 960791 CPT CODE 22530
[2018-08-11] MEDS ORDERED: Acetaminophen/HYDROcodone 325-5 MG Tab PO PRN (15:33)
[2018-08-11] MEDS ORDERED: cefOXitin 1 GM in Premix Bag 1 BAG IV SCH (15:45)
[2018-08-11] MEDS ORDERED: Lactated Ringers 1,000 ML IV SCH (15:45)
--- NOTE | 2018-08-11 16:01 | PCM48HPAN ---
Post Anesthesia Note - EVALUATION WITHIN 48HRS OF ANESTHETIC Vital Signs in Normal Range: Yes Patient Participated in Evaluation: Yes Respiratory Function Stable: Yes Airway Patent: Yes Cardiovascular Function Stable: Yes Hydration Status Stable: Yes Pain Control Satisfactory: Yes Nausea and Vomiting Control Satisfactory: Yes Mental Status Recovered: Yes Resp Rate: 16 - COMMENTS/OBSERVATIONS Free Text/Narrative:: PT COMFORTABLE A THIS TIME NO ANESTHESIA RELATED COMPLICATIONS.
--- NOTE | 2018-08-11 16:03 | PCM.POSTAN ---
POST ANESTHESIA ASSESSMENT - MENTAL STATUS Mental Status: Alert (PT COMFORTABLE AT THIS TIME, NO ANESTHESIA RELATED PROBLEMS NOTED), Oriented - RESPIRATORY Respiratory Status: Respiratory Rate WNL, Airway Patent, O2 Saturation Stable - CARDIOVASCULAR CV Status: Pulse Rate WNL, Blood Pressure Stable - GASTROINTESTINAL GI Status: No Symptoms - PAIN Pain Score: 0 - POST OP HYDRATION Hydration Status: Adequate & Stable - OBSERVATIONS Free Text/Narrative:: PATIENT COMFORTABLE AT THIS TIME NO ANESTHESIA RELATED PROBLEMS
[2018-08-11] MEDS ORDERED: Iopamidol 755 MG/ML 200 ML Multipack Bottle IVPUSH STA (16:52)
[2018-08-11 18:36] VITALS: BP 110/70
--- NOTE | 2018-08-11 19:27 | OR ---
SURGEON: Deni Perkins M.D. DATE OF PROCEDURE: 08/11/2018 OPERATION PERFORMED: Laparoscopic appendectomy. ANESTHESIA: General endotracheal. ASA CLASSIFICATION: IE. PREOPERATIVE DIAGNOSIS: Acute abdomen. POSTOPERATIVE DIAGNOSIS: Early acute appendicitis without rupture. ESTIMATED BLOOD LOSS: 10 mL. INTRAOPERATIVE FLUID REPLACEMENT: 900 mL of crystalloid. INTRAOPERATIVE URINE OUTPUT: 200 mL. DESCRIPTION OF PROCEDURE: The patient was taken to the operating room and placed on the operating table in the supine position. Time-out was called for appropriate identification of the patient and procedure. Thigh-high TEDs and sequential compression boots were placed. Following satisfactory attainment of general endotracheal anesthesia, a Rossi catheter was placed in the patient's urinary bladder. The abdomen was prepped with DuraPrep solution. Sterile drapes were applied. The skin just above the umbilicus was infiltrated with 0.5% Marcaine solution. The skin incision was made and deepened through the subcutaneous tissue obtaining hemostasis with the use of electrocautery. The Veress needle was introduced into the peritoneal cavity. Saline drop test was positive. Carbon dioxide pneumoperitoneum was established with the release set at 13 cm of water. Once a satisfactory pneumoperitoneum had been established, 5 mm camera port were placed through the supraumbilical incision. Under camera vision, 12 mm suprapubic and 5 mm left lower quadrant ports were placed. Each incision was preemptively infiltrated with 0.5% Marcaine solution, the patient was now positioned with head down and rolled to the left. The appendix was grasped, adhesions were taken down, and the mesoappendix was divided with the Harmonic scalpel. The appendix was doubly ligated with 0 PDS Endoloops and divided with the Harmonic scalpel. This was then placed in the EndoCatch. The right lower quadrant was inspected for hemostasis. No bleeding was noted. The right lower quadrant was irrigated with 1000 mL of 1% Ancef solution. All fluid was aspirated. The patient was now positioned in a neutral position and the 12 mm suprapubic port and EndoCatch containing appendix were removed. Under camera vision, the 5 mm left lower quadrant port was removed, and finally the supraumbilical camera and port were removed. The wounds were inspected for hemostasis. Small bleeding sites were electrocoagulated. The suprapubic and supraumbilical incisions were closed in 2 layers approximating the subcutaneous tissue with 3-0 Vicryl, and the skin with subcuticular 4-0 Monocryl. The left lower quadrant incision was closed with subcuticular 4-0 Monocryl. The incisions were then dressed with Steri-Strips and sterile Tegaderm pads. Sponge, needle, and instrument counts were all correct. Prior to emergence from anesthesia, the Rossi catheter was removed. Following emergence from anesthesia and extubation, the patient was taken to recovery room in stable condition. ALEXA / CAYLA /[id number]
--- NOTE | 2018-08-12 20:14 | CT ---
EXAM DATE: 08/11/18 PATIENT'S AGE: 27 Patient: RENETTA COX Facility: [place], [place] Site . Site : 1990 Study: CT Abdomen/Pelvis [id number] 12:32:10 PM Ordering Physician: Doctor Stevens Final Report: Indication: Right lower quadrant pain. Technique: Multiple contiguous axial images were obtained from the lung bases through the symphysis pubis after the intravenous administration of 100 milliliters Isovue 370. Please note that all CT scans at this facility use dose modulation, iterative reconstruction, and/or weight-based dosing when appropriate to reduce radiation dose to as low as reasonably achievable. Comparison: No prior studies are available for comparison. A report of a CT scan the pelvis without contrast dated April 24, 2011 is present. However there are no images from the study. Findings: The lung bases are clear. The heart is normal in size. No pericardial effusion is identified. The liver, spleen, pancreas, adrenals, and kidneys are normal. No intrahepatic biliary ductal dilatation is identified. No hydronephrosis is seen. In the pelvis, the uterus, ovaries, and bladder are grossly normal. There is a probable left ovarian cyst. The small and large bowel are normal in caliber. The appendix measures 7 millimeters in size. Minimal periappendiceal fat stranding is identified. These findings are most consistent with a developing appendicitis. No free air or free fluid is identified within the abdomen or pelvis. No abscess is identified. The aorta is normal in caliber. No lytic or blastic lesions of the spine are identified. Impression: The appendix measures 7 millimeters in size with minimal. Appendiceal fat stranding. These findings are most consistent with an early appendicitis. These findings were discussed with Tia at the time of this dictation. Please note that all CT scans at this facility use dose modulation, iterative reconstruction, and/or weight-based dosing when appropriate to reduce radiation dose to as low as reasonably achievable. Dictated by Kate De La O MD @ Aug 11 2018 12:40PM (Electronic Signature) Report Signed by Proxy. [facility]ONS[facility]herry
== END 2018-08-11 18:30 | disposition home or self-care (01) ==
LOC: MW.ED 11:01 → MW.SDS 13:22 → MW.MS 16:34 → MW.SDS 18:30
PROVIDERS: ATTEND Surgery
DX: K35.80 Unspecified acute appendicitis (principal); F17.210 Nicotine dependence, cigarettes, uncomplicated; Z90.49 Acquired absence of other specified parts of digestive tract
CPT/HCPCS: 44970; 74177; 80053; 81001; 81025; 85025; 87086; 96361; 96365; 96366; 96375; 99285; J0690; J0694; J1885; J2250; J2405; J2704; J3010; J3490; J7030; J7040; J7120; Q9967; 99283

== ENCOUNTER 2023-11-25 04:44 | Emergency (ER) | payer BC, OTHER ==
[2023-11-25] MEDS: Sodium Chloride 0.9% 1,000 ML IV ONE (05:12)
[2023-11-25] MEDS: Metoclopramide 10 MG/2 ML SDV IVPUSH ONE (05:12)
[2023-11-25] MEDS: Ketorolac 30 MG/ML SDV IVPUSH ONE (05:12)
[2023-11-25 05:28] LABS: BASOPHILS ABSOLUTE AUTO 0.05 K/uL (0.00-0.20); BASOPHILS PERCENT AUTO 0.4 % (0.0-1.0); EOSINOPHILS ABSOLUTE AUTO 0.11 K/uL (0.00-0.45); EOSINOPHILS PERCENT AUTO 0.9 % (0.0-6.0); HEMATOCRIT 43.8 % (37.0-47.0); HEMOGLOBIN 14.3 g/dL (12.0-16.0); IMMATURE GRAN ABSOLUTE AUTO 0.04 K/uL (0.00-0.05); IMMATURE GRAN PERCENT AUTO 0.3 % (0.0-0.4); LYMPHOCYTES ABSOLUTE AUTO 2.09 K/uL (1.00-4.80); MEAN CORPUSCULAR HEMOGLOBIN 27.3 pg (28.0-32.0); MEAN CORPUSCULAR HGB CONC 32.6 g/dL (32.0-36.0); MEAN CORPUSCULAR VOLUME 83.7 fL (83.0-99.0); MEAN PLATELET VOLUME 10.1 fL (9.4-12.3); MONOCYTES ABSOLUTE AUTO 0.84 K/uL (0.00-0.80); MONOCYTES PERCENT AUTO 6.9 % (0.0-8.0); NEUTROPHILS ABSOLUTE AUTO 9.13 K/uL (1.80-7.70); NEUTROPHILS PERCENT AUTO 74.5 % (41.0-71.0); PLATELET COUNT,PLT 265 K/uL (150-400); RED BLOOD CELL COUNT 5.23 M/uL (4.10-5.30); WHITE BLOOD CELL COUNT,WBC 12.26 K/uL (3.9-11.3)
[2023-11-25 05:50] LABS: ALBUMIN 3.9 g/dL (3.4-5.0); BILIRUBIN TOTAL 0.9 mg/dL (0.2-1.0); CALCIUM 8.8 mg/dL (8.5-10.1); CARBON DIOXIDE,CO2 22.5 mmol/L (21.0-32.0); CREATININE 0.7 mg/dL (0.6-1.0); EST CRCL DRUG DOSING (CG) 89.98 mL/min; MAGNESIUM 2.1 mg/dL (1.8-2.4); POTASSIUM,K 3.7 mmol/L (3.5-5.1); PROTEIN TOTAL,TP 7.8 g/dL (6.4-8.2)
[2023-11-25] MEDS: Iopamidol 755 MG/ML 500 ML Multipack Bottle IVPUSH ONE (06:03)
[2023-11-25 06:22] VITALS: PULSE 98
[2023-11-25 06:42] VITALS: BP 168/95
== END 2023-11-25 06:43 | disposition home or self-care (01) ==
LOC: MW.ED 04:44
DX: K31.84 Gastroparesis (principal); Z90.49 Acquired absence of other specified parts of digestive tract; Z79.85 Long-term (current) use of injectable non-insulin antidiabetic drugs; Z79.899 Other long term (current) drug therapy; Z75.8 Other problems related to medical facilities and other health care
CPT/HCPCS: 36415; 74177; 80053; 83690; 83735; 84703; 85025; 96361; 96374; 96375; 99284; J1885; J2765; J7030; Q9967

== ENCOUNTER 2024-09-01 17:49 | Emergency (ER) | payer BC, OTHER ==
[2024-09-01 19:17] VITALS: BP 118/71; PULSE 82
== END 2024-09-01 19:17 | disposition home or self-care (01) ==
LOC: MW.ED 17:49
DX: S62.015A Nondisplaced fracture of distal pole of navicular [scaphoid] bone of left wrist, initial encounter for closed fracture (principal); S52.502A Unspecified fracture of the lower end of left radius, initial encounter for closed fracture; Z75.8 Other problems related to medical facilities and other health care; W00.0XXA Fall on same level due to ice and snow, initial encounter
CPT/HCPCS: 73090-26-LT; 73090-LT; 73110-26-LT; 73110-LT; 99283

== ENCOUNTER 2025-01-19 13:46 | Emergency (ER) | payer BC, OTHER ==
[2025-01-19] MEDS ORDERED: Sodium Chloride 0.9% 20 ML SDV IV PRN (14:33)
[2025-01-19] MEDS ORDERED: Sodium Chloride 0.9% 10 ML Syringe FLUSH PRN (14:33)
[2025-01-19] MEDS ORDERED: Sodium Chloride 0.9% 2.5 ML Syringe FLUSH PRN (14:33)
[2025-01-19] MEDS: Ondansetron 4 MG/2 ML SDV IVPUSH ONE (14:46)
[2025-01-19] MEDS: Morphine 4 MG/ML Syringe IVPUSH ONE (14:46)
[2025-01-19 14:48] LABS: BASOPHILS ABSOLUTE AUTO 0.08 K/uL (0.00-0.20); BASOPHILS PERCENT AUTO 0.9 % (0.0-1.0); EOSINOPHILS ABSOLUTE AUTO 0.15 K/uL (0.00-0.45); EOSINOPHILS PERCENT AUTO 1.6 % (0.0-6.0); HEMATOCRIT 41.9 % (37.0-47.0); HEMOGLOBIN 13.6 g/dL (12.0-16.0); IMMATURE GRAN ABSOLUTE AUTO 0.03 K/uL (0.00-0.05); IMMATURE GRAN PERCENT AUTO 0.3 % (0.0-0.4); LYMPHOCYTES ABSOLUTE AUTO 3.51 K/uL (1.00-4.80); LYMPHOCYTES PERCENT AUTO 37.4 % (24.0-44.0); MEAN CORPUSCULAR HEMOGLOBIN 27.6 pg (28.0-32.0); MEAN CORPUSCULAR HGB CONC 32.5 g/dL (32.0-36.0); MONOCYTES ABSOLUTE AUTO 0.57 K/uL (0.00-0.80); MONOCYTES PERCENT AUTO 6.1 % (0.0-8.0); NEUTROPHILS ABSOLUTE AUTO 5.05 K/uL (1.80-7.70); NEUTROPHILS PERCENT AUTO 53.7 % (41.0-71.0); PLATELET COUNT,PLT 311 K/uL (150-400); RED BLOOD CELL COUNT 4.93 M/uL (4.10-5.30); WHITE BLOOD CELL COUNT,WBC 9.39 K/uL (3.9-11.3)
[2025-01-19 14:52] LABS: APPEARANCE,URINE SLT CLOUDY; BILIRUBIN,URINE NEGATIVE (NEGATIVE); COLOR,URINE YELLOW; GLUCOSE,URINE NEGATIVE (NEGATIVE); KETONES,URINE TRACE mg/dL (NEGATIVE); LEUKOCYTE ESTERASE,URINE TRACE (NEGATIVE); NITRITE,URINE NEGATIVE (NEGATIVE); OCCULT BLOOD,URINE LARGE (NEGATIVE); PH,URINE 5.5 (5.0-8.0); PROTEIN,URINE TRACE mg/dL (NEGATIVE); UROBILINOGEN,URINE 0.2 EU/dL (<2.0)
[2025-01-19 15:04] LABS: BACTERIA,URINE FEW (NEGATIVE); EPITHELIAL CELLS,URINE FEW (NONE-FEW)
[2025-01-19 15:05] LABS: MUCUS,URINE LIGHT (NONE-MOD)
[2025-01-19 15:39] LABS: A/G RATIO 1.3 (0.9-1.6); ALBUMIN 3.9 g/dL (3.4-5.0); BILIRUBIN TOTAL 0.3 mg/dL (0.2-1.0); CALCIUM 8.6 mg/dL (8.5-10.1); CARBON DIOXIDE,CO2 27.4 mmol/L (21.0-32.0); CREATININE 0.8 mg/dL (0.6-1.0); EST CRCL DRUG DOSING (CG) 79.11 mL/min; MAGNESIUM 1.9 mg/dL (1.8-2.4); POTASSIUM,K 3.6 mmol/L (3.5-5.1)
[2025-01-19 17:38] VITALS: BP 133/81; PULSE 86
== END 2025-01-19 17:38 | disposition home or self-care (01) ==
LOC: MW.ED 13:46
DX: N13.2 Hydronephrosis with renal and ureteral calculous obstruction (principal); Z90.49 Acquired absence of other specified parts of digestive tract; Z79.899 Other long term (current) drug therapy
CPT/HCPCS: 36415; 74176; 80053; 81001; 83690; 83735; 84703; 85025; 96374; 96375; 99284; J2270; J2405